=== PATIENT | female | born 1985 | race Caucasian/White ===

== ENCOUNTER 2016-10-01 21:01 | Emergency (ER) | payer SELFPAY ==
--- NOTE | ~2016-10-01 | CR173 ---
[facility] A Service of [facility] & [facility] RADIOLOGY TEXT RESULTS PATIENT: JUAN HERNADEZ LOCATION: [facility]FT[facility] : 83 UNIT #: [id number] AGE: [address]: Juan Warren SEX: F ORDER DR: [id number] [facility] [address] [facility]. [place], [place] [address] [id number] E MR#: [id number] Acc #: [id number] NAME: JUAN HERNADEZ : 1985 SEX: F STUDY DATE/TIME: 10/01/2016 22:37 UNIT: [facility]FT[facility] ROOM: STUDY DESCRIPTION: CR Knee 3 Views Rt Attending Physician: Juan Warren P.A.-C. Ordering Physician: Ed Brian Bearden M.D. Primary Care Physician: No Primary Care Physician MEDICAL IMAGING REPORT This report is preliminary unless electronic signature is present EXAM Right knee series. INDICATION Right knee pain after an injury today. PROCEDURE Three views of the right knee. COMPARISON None FINDINGS No acute fracture or dislocation. There is a small joint effusion. IMPRESSION Small joint effusion. No acute bone findings. Dictated by... Jairon Reilly M.D. THIS IS AN ELECTRONICALLY VERIFIED REPORT Jairon Reilly M.D. at 10/06/2016 7:25 AM OZ/freddy TD: 10/02/2016 09:34 JOB #: [id number] MEDICAL IMAGING REPORT Page 1 of 1 COPY
== END 2016-10-02 00:05 | disposition home or self-care (01) ==
LOC: CED 21:01 → CFTX 21:01
DX: S83.411A Sprain of medial collateral ligament of right knee, initial encounter (principal); X50.1XXA Overexertion from prolonged static or awkward postures, initial encounter
CPT/HCPCS: 29505; 73562; 84703; 99283